=== PATIENT | female | born 1965 | race Caucasian/White ===

== ENCOUNTER 2023-09-04 23:12 | Day surgery (SDC) | payer BC ==
[2023-09-05 00:03] LABS: BASOPHILS ABSOLUTE AUTO 0.03 K/uL (0.00-0.10); BASOPHILS PERCENT AUTO 0.6 % (0.1-1.3); EOSINOPHILS ABSOLUTE AUTO 0.13 K/uL (0.00-0.40); EOSINOPHILS PERCENT AUTO 2.4 % (0.0-5.4); HEMATOCRIT 39.3 % (34.3-46.0); HEMOGLOBIN 13.3 g/dL (11.2-15.5); IMMATURE GRAN PERCENT AUTO 0.2 % (0.0-0.7); LYMPHOCYTES PERCENT AUTO 35.2 % (11.4-47.7); MEAN CORPUSCULAR HEMOGLOBIN 32.8 pg (31.6-35.5); MEAN CORPUSCULAR HGB CONC 33.8 g/dL (31.6-35.5); MEAN CORPUSCULAR VOLUME 96.8 fL (81.4-99.0); MONOCYTES ABSOLUTE AUTO 0.42 K/uL (0.20-0.90); MONOCYTES PERCENT AUTO 7.8 % (3.3-12.6); NEUTROPHILS ABSOLUTE AUTO 2.91 K/uL (1.0-7.6); NEUTROPHILS PERCENT AUTO 53.8 % (40.0-78.1); PLATELET COUNT,PLT 222 K/uL (130-375); RED BLOOD CELL COUNT 4.06 M/uL (3.77-5.24); WHITE BLOOD CELL COUNT,WBC 5.4 K/uL (3.2-11.0)
[2023-09-05 00:05] LABS: IMMATURE GRAN ABSOLUTE AUTO 0.01 K/uL (0.00-0.23)
[2023-09-05] MEDS: Tranexamic Acid 1,000 MG/10 ML Vial IVPUSH ONE (01:17)
[2023-09-05] MEDS: Tranexamic Acid 1,000 MG/10 ML Vial TOP ONE (02:47)
[2023-09-05] MEDS ORDERED: Midazolam 1 MG/ML 2 ML SDV ONE (06:09)
[2023-09-05] MEDS ORDERED: Propofol 200 MG/20 ML SDV ONE ×4 (06:09→07:22)
[2023-09-05] MEDS ORDERED: fentaNYL 100 MCG/2 ML SDV ONE (06:09)
[2023-09-05] MEDS ORDERED: ceFAZolin 1 GM Vial ONE (06:44)
[2023-09-05] MEDS ORDERED: Sodium Chloride 0.9% 10 ML ONE (06:44)
[2023-09-05] MEDS ORDERED: Lactated Ringers 1,000 ML ONE (06:47)
[2023-09-05] MEDS: Bupivacaine 0.5%/EPINEPHrine 1:200,000 50 ML MDV ONE (08:24)
[2023-09-05] MEDS: Diphtheria,Pertussis(Acell),Tetanus Vaccine 0.5 ML Syringe IM ONE (09:34)
== END 2023-09-05 ==
LOC: JP.ED 23:12 → JP.SDS 09-05 06:45 → JP.ED 09-05 09:47
PROVIDERS: ATTEND Surgery
DX: S51.832A Puncture wound without foreign body of left forearm, initial encounter (principal); W27.2XXA Contact with scissors, initial encounter
CPT/HCPCS: 35236; 36415; 85025; 90471; 90715; 96374; 99283; 99284; J0690; J2250; J2704; J3010; J3490; J7120